=== PATIENT | male | born 1950 | race Caucasian/White ===

== ENCOUNTER 2017-01-27 22:14 | Emergency (ER) | payer MEDICARE, OTHER ==
[2017-01-27 23:07] VITALS: BP 109/73; PULSE 84; RESP 16; TEMP 97.5; O2SAT 97
--- NOTE | 2017-01-27 23:24 | C.PDOC ---
History Of Present Illness 66 y/o M c PMHx inguinal hernia x years p/w hernia pain x 6 months. He states the pain is intermittent. He denies fever, skin color change, vomiting, constipation. He states that he came to the hospital to get the hernia fixed finally. Time Seen by Provider: 01/27/17 23:16 Chief Complaint (Nursing): Abdominal Pain Past Medical History Vital Signs: Last Vital Signs Temp 97.5 F L 01/27/17 23:05 Pulse 84 01/27/17 23:05 Resp 16 01/27/17 23:05 BP 109/73 01/27/17 23:05 Pulse Ox 97 01/27/17 23:27 - Medical History PMH: Asthma Surgical History: Appendectomy (1979) Family History: States: Unknown Family Hx - Social History Hx Alcohol Use: Yes Hx Substance Use: No Review Of Systems Except As Marked, All Systems Reviewed And Found Negative. Constitutional: Negative for: Fever Cardiovascular: Negative for: Chest Pain Physical Exam - Physical Exam Additional Physical Exam Comments: Constitutional: No acute distress. Head: Normocephalic. Atraumatic. Eyes: PERRL. ENT: Moist mucous membranes. Neck: Supple. Cardiovascular: Regular rate. Chest: No tenderness. Respiratory: Clear to auscultation bilaterally. GI: Soft. Nontender. Nondistended. L inguinal hernia into scrotum without ecchymosis, erythema, tenderness. Back: No CVA tenderness. Musculoskeletal: No tenderness or swelling of extremities. Skin: No rash. Neurologic: Alert, no focal deficit. ED Course And Treatment O2 Sat by Pulse Oximetry: 97 Medical Decision Making Medical Decision Making: Patient instructed to follow up with General Surgery in office for elective hernia repair, no indication for further evaluation in ER currently for this chronic hernia that is not strangulated. Patient in no distress, normal vital signs, and no evidence of obstruction. Instructed to return for any of these reasons. Disposition - Disposition Referrals: Moira Mitchell MD [Staff Provider] - Disposition: HOME/ ROUTINE Disposition Time: 23:23 Condition: STABLE Prescriptions: Ibuprofen [Motrin] 1 tab PO Q6 #30 tab Instructions: Inguinal Hernia (ED) - Clinical Impression Clinical Impression: Inguinal hernia
== END 2017-01-27 23:28 | disposition home or self-care (01) ==
LOC: C.ER 22:14
DX: K46.9 Unspecified abdominal hernia without obstruction or gangrene (principal)

== ENCOUNTER 2017-02-05 17:51 | Inpatient (IN) | payer MEDICARE, MEDICAID ==
[2017-02-05 18:00] VITALS: O2SAT 96
[2017-02-05 19:07] LABS: BASO # 0.1 K/uL (0.0-0.2); BASO % 1.2 % (0.0-2.0); EOS % 0.3 % (0.0-4.0); HEMATOCRIT 44.8 % (35.0-51.0); LYMPH # 0.5 K/uL (1.0-4.3); LYMPH % 7.4 % (20.0-40.0); MEAN CELL VOLUME 83.1 fL (80.0-94.0); MEAN CORPUSCULAR HEMOGLOBIN 26.5 pg (27.0-31.0); MEAN CORPUSCULAR HGB CONC 31.9 g/dL (33.0-37.0); MEAN PLATELET VOLUME 9.2 fL (7.2-11.7); MONO # 0.7 K/uL (0.0-0.8); MONO % 10.3 % (0.0-10.0); PLATELET COUNT 153 K/uL (130-400); RED CELL DISTRIBUTION WIDTH 13.9 % (11.5-14.5); WHITE BLOOD COUNT 6.6 K/uL (4.8-10.8)
--- NOTE | 2017-02-05 19:11 | C.PDOC ---
History Of Present Illness <Nadia Lisa - Last Filed: 02/05/17 21:14> <Melchor Ramirez - Last Filed: 02/06/17 06:14> 66 year old patient presents to the ED complaining of bilateral leg pain, body aches and weakness for the past 15 days. Patient states the pain keeps him up at night. He also complains of fever, chills, and suicidal ideation. Patient reports he's thought about taking 10-15 pills of Xanax to kill himself a few times, but he hasn't done it since he doesn't have any Xanax. He is homeless and alone. Patient denies nausea, vomiting, shortness of breath, numbness, or chest pain. (Nadia Lisa) History Per: Patient History/Exam Limitations: no limitations Onset/Duration Of Symptoms: Days (15) Current Symptoms Are (Timing): Still Present Severity: Mild Pain Scale Rating Of: 3 Recent travel outside of the [place] States: No <Nadia Lisa - Last Filed: 02/05/17 21:14> <Melchor Ramirez - Last Filed: 02/06/17 06:14> Time Seen by Provider: 02/05/17 18:24 Chief Complaint (Nursing): Lower Extremity Problem/Injury Past Medical History Reviewed: Historical Data, Nursing Documentation, Vital Signs - Medical History PMH: Asthma Surgical History: Appendectomy (1979) Family History: States: Unknown Family Hx - Social History Hx Alcohol Use: Yes Hx Substance Use: No <Nadia Lisa - Last Filed: 02/05/17 21:14> Vital Signs: Last Vital Signs Temp 100.6 F H 02/06/17 00:20 Pulse 97 H 02/05/17 22:41 Resp 18 02/05/17 22:41 BP 127/83 02/05/17 22:41 Pulse Ox 96 02/05/17 22:41 Review Of Systems Except As Marked, All Systems Reviewed And Found Negative. Constitutional: Positive for: Fever, Chills, Weakness Cardiovascular: Negative for: Chest Pain Respiratory: Negative for: Shortness of Breath Gastrointestinal: Negative for: Nausea, Vomiting Neurological: Negative for: Numbness Psych: Positive for: Suicidal ideation <Nadia Lisa - Last Filed: 02/05/17 21:14> Physical Exam - Physical Exam Appears: Non-toxic, No Acute Distress Skin: Warm, Dry Head: Atraumatic, Normacephalic Eye(s): bilateral: Normal Inspection, EOMI Neck: Normal ROM, Supple Chest: Symmetrical Cardiovascular: Rhythm Regular Respiratory: No Accessory Muscle Use Back: Normal Inspection Extremity: Normal ROM Neurological/Psych: Oriented x3 <Nadia Lisa - Last Filed: 02/05/17 21:14> ED Course And Treatment - Laboratory Results Result Diagrams: 02/05/17 19:04 02/05/17 19:04 O2 Sat by Pulse Oximetry: 96 (RA) Pulse Ox Interpretation: Normal Progress Note: Plan: -Labs. -Crisis evaluation. -Reassess and disposition. Case discussed with Crisis counselor who will follow up with the patient at bedside. Dr. Arcos accepted the patient for psych admission for depressive disorder. <Nadia Lisa - Last Filed: 02/05/17 21:14> - Laboratory Results Result Diagrams: 02/05/17 19:04 02/05/17 19:04 <Melchor Ramirez - Last Filed: 02/06/17 06:14> Medical Decision Making <Nadia Lisa - Last Filed: 02/05/17 21:14> <Melchor Ramirez - Last Filed: 02/06/17 06:14> Medical Decision Makin: asked by ED RN to eval for pt with fever, had been given Tylenol already pt adm for psych, normal w/u with only Tox + cannabis Exam: clear lungs and OP clear, no infections/cellulitis noted. 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 - Scribe Statement The provider has reviewed the documentation as recorded by the Scribe <Nadia Lisa - Last Filed: 02/05/17 21:14> <Melchor Ramirez - Last Filed: 02/06/17 06:14> - Scribe Statement Milvia Vila All medical record entries made by the Scribe were at my direction and personally dictated by me. I have reviewed the chart and agree that the record accurately reflects my personal performance of the history, physical exam, medical decision making, and the department course for this patient. I have also personally directed, reviewed, and agree with the discharge instructions and disposition. (Nadia Lisa)
[2017-02-05 19:15] LABS: CHLORIDE 97 mmol/L (98-107); POTASSIUM 4.2 mmol/L (3.6-5.2); SODIUM 133 mmol/L (132-148)
[2017-02-05 19:17] LABS: GFR AFRICAN-AMERICAN > 60
[2017-02-05 19:18] LABS: ALB/GLOB RATIO 1.3 (1.0-2.1); ALKALINE PHOSPHATASE 86 U/L (38-126); ALT/SGPT 36 U/L (21-72); AST/SGOT 39 U/L (17-59); BILIRUBIN,TOTAL < 0.1 mg/dL (0.2-1.3); BLOOD UREA NITROGEN 23 mg/dL (9-20); CALCIUM 7.9 mg/dl (8.6-10.4); CARBON DIOXIDE 25 mmol/L (22-30); GLUCOSE,RANDOM 78 mg/dL (75-110); TOTAL PROTEIN 6.3 g/dL (6.3-8.3)
[2017-02-05 19:19] LABS: ALCOHOL SERUM < 10 mg/dl (0-10)
[2017-02-05 19:46] LABS: RBC URINE 1 /hpf (0-3); URINE BACTERIA RARE (<OCC); URINE BILIRUBIN NEGATIVE (NEGATIVE); URINE BLOOD NEGATIVE (NEGATIVE); URINE COLOR Yellow (YELLOW); URINE GLUCOSE (UA) NORMAL (Normal); URINE KETONE NEGATIVE (NEGATIVE); URINE LEUKOCYTE ESTERASE NEG Leu/uL (Negative); URINE PROTEIN NEGATIVE (NEGATIVE); URINE UROBILINOGEN NORMAL mg/dL (0.2-1.0); WBC URINE 3 /hpf (0-5)
[2017-02-05 20:06] LABS: NEUTROPHIL 70 % (50-75); TOTAL CELLS COUNTED 100
--- NOTE | 2017-02-06 14:13 | PCM.PSYCH ---
Initial Psychiatric Evaluation - Initial Psychiatric Evaluation Type of Admission: Voluntary Legal Status: Capacity Chief Complaint (in patient's own words): I was feeling depressed and suicidal History of Present Illness and Precipitating Events: Patient is a 66 y/o HM, who is currently homeless and unemployed with history of depressive disorder came to the hospital with depressed mood and suicidal ideation without any plan. Pt states that he has never admitted to any psychiatric unit and he has never seen any psychiatrist in the past. However, since past few weeks he is becoming increasingly depressed. yesterday he developed suicidal ideation without any plan so he came to the hospital to get help. Patient reports depressed mood, feelings of hopelessness and helplessness and poor sleep. He also reports leg pains and cramps and chest congestion. He reports irritability and agitation but denies any manic or psychotic symptoms. He reports smoking marihuana but denies any other substance abuse. Patient denies any withdrawal symptoms. PMH: Leg pains Current Medications: Active Medications Generic Name Dose Route Start Last Admin Trade Name Freq PRN Reason Stop Dose Admin Citalopram Hydrobromide 10 mg 02/06/17 10:00 02/06/17 11:12 Celexa PO Not Given DAILY ANGELINA Diphenhydramine HCl 50 mg 02/05/17 22:12 Benadryl PO Q6 PRN Extra Pyramidal Symptoms Gabapentin 100 mg 02/06/17 10:00 02/06/17 11:14 Neurontin PO 100 mg TID ANGELINA Administration Hydroxyzine HCl 25 mg 02/05/17 22:14 Atarax PO Q6 PRN Agitation Trazodone HCl 50 mg 02/06/17 22:00 Desyrel PO [facility] Past Psychiatric History - Past Psychiatric History Previous Treatment History: None Pertinent Medical Hx (Current Medical&Sleep Prob, Allergies): Allergies Allergy/AdvReac Type Severity Reaction Status Date / Time No Known Allergies Allergy Verified 01/27/17 23:08 Ibuprofen [Motrin] 1 tab PO Q6 #30 tab 01/27/17 Review of Systems - Review of Systems All systems: reviewed and no additional remarkable complaints except - Psychiatric Psychiatric: Anxiety, Irritability, Suicidal Ideation Mental Status Examination - Personal Presentation Personal Presentation: Looks stated age - Affect Affect: Constricted, Depressed - Motor Activity Motor Activity: Calm - Reliability in Providing Information Reliability in Providing Information: Good - Speech Speech: Organized - Mood Mood: Depressed, Anxious - Formal Thought Process Formal Thought Process: No Impairment - Obsessions/Compulsions Obsessions: No Compulsions: No - Cognitive Functions Orientation: Person, Place, Situation, Time Sensorium: Alert Attention/Concentration: Attentive Abstract Thinking: [place] Estimate of Intelligence: Below average Judgement: Imparied, as evidence by: Poor judgement, Imparied, as evidence by: Lack of insight into illness - Risk Risk: Suicidal, Diminished functioning - Strength & Assets Inventory Strength & Assets Inventory: Cooperative DSM 5 DX - DSM 5 DSM 5 Diagnosis: 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
[2017-02-06] MEDS ORDERED: Albuterol-Ipratrop 20 mcg/actuation (4 g) INH PRN (20:11)
[2017-02-07] MEDS ORDERED: Albuterol-Ipratrop 20 mcg/actuation (4 g) INH SCH (02:00)
--- NOTE | 2017-02-07 11:03 | PCM.PYCHPN ---
Psychiatric Progress Note - Psychiatric Progress Note Patient seen today, length of contact: 13 min Patient Chief Complaint: 'I feel depressed' Problems Identified/Issues Discussed: 66 yo M follow up states feeling depressed. Patient reports that he wants to leave the world, but does not want to hurt himself. Patient denies wanting to hurt other people, seeing and hearing things that are not there, feeling followed. Experiencing congestion, phlegm, night sweats, is sleeping well. Patient said that since starting his medication he has been having diarrhea. Denies nausea, vomiting, abdominal pain, body aches, shaking. Does not have a plan for when he is discharged. Mental Status Examination - Cognitive Function Orientation: Person, Place, Situation, Time Memory: Intact Attention: WNL Concentration: Poor Association: WNL Fund of Knowledge: Poor - Mood Mood: Depressed, Anxious - Affect Affect: Constricted, Depressed - Speech Speech: Soft - Formal Thought Process Formal Thought Process: No Impairment - Suicidal Ideation Suicidal Ideation: No - Homicidal Ideation Homicidal Ideation: No Goal/Treatment Plan - Goal/Treatment Plan Need for Continued Stay: Discharge may exacerbated symptoms, Severe functional impairment Progress Toward Problem(s) and Goals/Treatment Plan: 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
--- NOTE | 2017-02-08 14:04 | PCM.PYCHPN ---
Psychiatric Progress Note - Psychiatric Progress Note Patient seen today, length of contact: 13 min Patient Chief Complaint: I was feeling depressed and suicidal Problems Identified/Issues Discussed: Patient seen and evaluated, chart reviewed and discussed with the nurse. 66 yo M was discussed at the morning meeting and it was reported that patient may be malingering. Upon follow up patient reports chief complain of depression, nose bleeds, diarrhea. Patient says he does not want to hurt himself but wants to leave this world using pills because he has nothing, denies wanting to hurt others. Medication side effects reported include diarrhea, drowsiness. Positive for epistaxis, nausea, phlegm, poor appetitie with empty stomach. Patient sleeps well. Denies hearing and seeing things that are not there. Patient has no plans for after discharge, states he has no where to go, without family, is homeless, and requests a Greek speaking social service liaison to help him create a plan. General impression of patient is irritable state, worsening phlegm, and wants to meet with social service liaison to create a plan. Mental Status Examination - Cognitive Function Orientation: Person, Place, Situation, Time Memory: Intact Attention: WNL Concentration: Poor Association: WNL Fund of Knowledge: Poor - Mood Mood: Depressed, Anxious - Affect Affect: Constricted, Depressed - Speech Speech: Soft - Formal Thought Process Formal Thought Process: No Impairment - Suicidal Ideation Suicidal Ideation: No - Homicidal Ideation Homicidal Ideation: No Goal/Treatment Plan - Goal/Treatment Plan Need for Continued Stay: Discharge may exacerbated symptoms, Severe functional impairment Progress Toward Problem(s) and Goals/Treatment Plan: 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
--- NOTE | 2017-02-09 14:16 | PCM.PYCHPN ---
Psychiatric Progress Note - Psychiatric Progress Note Patient seen today, length of contact: 13 min Patient Chief Complaint: I'm feeling better Problems Identified/Issues Discussed: Patient seen and evaluated, chart reviewed and discussed with the nurse. Patient reports improvement in his mood and improvement in his physical symptoms. As per him his sleep and appetite are getting better. He denies any suicidal ideation or homicidal ideation. He is taking selective medications and denies any side effects. Medication Change: No Medical Record Reviewed: Yes Mental Status Examination - Cognitive Function Orientation: Person, Place, Situation, Time Memory: Intact Attention: WNL Concentration: WNL Association: WNL Fund of Knowledge: WNL - Mood Mood: Depressed, Anxious - Affect Affect: Constricted, Depressed - Speech Speech: Soft - Formal Thought Process Formal Thought Process: No Impairment - Suicidal Ideation Suicidal Ideation: No - Homicidal Ideation Homicidal Ideation: No Goal/Treatment Plan - Goal/Treatment Plan Need for Continued Stay: Discharge may exacerbated symptoms, Severe functional impairment Progress Toward Problem(s) and Goals/Treatment Plan: 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
[2017-02-10 08:02] VITALS: BP 100/68; PULSE 73; RESP 20; TEMP 98.2
--- NOTE | 2017-02-10 10:36 | PCM.PYCHDC ---
Mental Status Examination - Mental Status Examination Orientation: Person, Place, Situation, Time Memory: Intact Mood: Neutral Affect: Constricted Speech: Soft Attention: WNL Concentration: WNL Association: WNL Fund of Knowledge: WNL Formal Thought Process: No Impairment Description of patient's judgement and insight: good, fair Psychotic Thoughts and Behaviors: denies any AVH Suicidal Ideation: No Current Homicidal Ideation?: No Discharge Summary - Discharge Note Reason for Hospitalization: Patient is a 66 y/o HM, who is currently homeless and unemployed with history of depressive disorder came to the hospital with depressed mood and suicidal ideation without any plan. Pt states that he has never admitted to any psychiatric unit and he has never seen any psychiatrist in the past. However, since past few weeks he is becoming increasingly depressed. yesterday he developed suicidal ideation without any plan so he came to the hospital to get help. Patient reports depressed mood, feelings of hopelessness and helplessness and poor sleep. He also reports leg pains and cramps and chest congestion. He reports irritability and agitation but denies any manic or psychotic symptoms. He reports smoking marihuana but denies any other substance abuse. Patient denies any withdrawal symptoms. Consultations:: List each consultation separately and include: 1. Reason for request. 2. Findings. 3. Follow-up Summary of Hospital Course include:: 1. Description of specific treatment plan utilized for patients during their course of treatmen. 2. Summarize the time- course for resolution of acute symptoms and/or regressed behaviors. 3. Describe issues identified and worked on during hospitalization. 4. Describe medication utilized. 5. Describe medical problems identified and treated. 6. Reassessment of suicide risk Summary of Hospital Course: During the course of his stay, patient (pt) started progressively improving and he no longer remained irritable, depressed, and suicidal. His mood was improved and he started attending groups and meetings and started socializing. Patient denied any feelings of hopelessness, helplessness, and worthlessness, denied any problem with the sleep or appetite, denied suicidal ideation or homicidal ideation. Pt denied any auditory or visual hallucinations. Some changes were made in his current medications and patient was discharged on following medications. He tolerated these medications very well and denied any side effects. 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 Pt was educated and counseled about the risks of drinking and abusing drugs. Pt was educated and counseled to go to the ER or call 911 if pt develop suicidal ideation or homicidal ideation, worsening of symptoms or severe side effects of the meds. Prescriptions/Medication Reconciliation: traZODone [Desyrel] 50 mg PO HS #30 tab - Smoking Cessation Smoking Cessation Medication prescribed: No - Antipsychotic Medications Pt discharged on 2 or more routine antipsychotic medications: No
== END 2017-02-10 12:45 | disposition home or self-care (01) | DRG 885 ==
LOC: C.ER 17:51 → C.9E 21:14 → C.5E 21:31
PROVIDERS: ADMIT Psychiatry & Neurology Psychiatry; ATTEND Psychiatry & Neurology Psychiatry
PROC: GZ63ZZZ Other Counseling (ICD-10-PCS; principal; 2017-02-06)
PROC: GZHZZZZ Group Psychotherapy (ICD-10-PCS; 2017-02-06)
PROC: GZ58ZZZ Individual Psychotherapy, Cognitive-Behavioral (ICD-10-PCS; 2017-02-06)
PROC: GZ56ZZZ Individual Psychotherapy, Supportive (ICD-10-PCS; 2017-02-06)
DX: F32.2 Major depressive disorder, single episode, severe without psychotic features (principal); R45.851 Suicidal ideations; Z59.0 Homelessness; J45.909 Unspecified asthma, uncomplicated; F12.90 Cannabis use, unspecified, uncomplicated

== ENCOUNTER 2017-02-19 18:44 | Observation (INO) | payer MEDICARE, OTHER ==
--- NOTE | 2017-02-19 20:06 | C.PDOC ---
Time Seen by Provider: 02/19/17 20:05 Chief Complaint (Nursing): Male Genitourinary Past Medical History Reviewed: Historical Data, Nursing Documentation, Vital Signs Vital Signs: Last Vital Signs Temp 97.6 F 02/19/17 19:24 Pulse 93 H 02/19/17 19:24 Resp 20 02/19/17 19:24 BP 107/71 02/19/17 19:24 Pulse Ox 98 02/19/17 20:05 - Medical History PMH: Anxiety, Asthma, Depression Denies: Arthritis, Diabetes, Gastritis, Hepatitis, HIV, HTN, Chronic Kidney Disease, Seizures, Sexually Transmitted Disease Surgical History: Appendectomy (1979) - [employer] Procedures GROUP PSYCHOTHERAPY (02/05/17) INDIVIDUAL PSYCHOTHERAPY, COGNITIVE-BEHAVIORAL (02/05/17) INDIVIDUAL PSYCHOTHERAPY, SUPPORTIVE (02/05/17) OTHER COUNSELING (02/05/17) Family History: States: No Known Family Hx - Social History Hx Alcohol Use: No (stopped drinking 1 month ago) Hx Substance Use: No - Immunization History Hx Tetanus Toxoid Vaccination: No Hx Influenza Vaccination: No Hx Pneumococcal Vaccination: No ED Course And Treatment O2 Sat by Pulse Oximetry: 98 Disposition Counseled Patient/Family Regarding: Studies Performed, Diagnosis - Disposition Disposition Time: 20:05
[2017-02-19 20:26] LABS: RBC URINE 1 /hpf (0-3); URINE BILIRUBIN NEGATIVE (NEGATIVE); URINE BLOOD NEGATIVE (NEGATIVE); URINE COLOR Yellow (YELLOW); URINE GLUCOSE (UA) NORMAL (Normal); URINE KETONE NEGATIVE (NEGATIVE); URINE LEUKOCYTE ESTERASE NEG Leu/uL (Negative); URINE PROTEIN NEGATIVE (NEGATIVE); URINE UROBILINOGEN NORMAL mg/dL (0.2-1.0); WBC URINE < 1 /hpf (0-5)
[2017-02-19 20:46] LABS: ABG ALLEN TEST POS; DRAW SITE RRADIAL
[2017-02-19] MEDS: Albuterol-Ipratrop 3 mg / 0.5 (3 ml) UD IH SCH ×3 (21:15→21:50)
[2017-02-19 21:30] LABS: BASO % 0.5 % (0.0-2.0); EOS # 0.1 K/uL (0.0-0.7); EOS % 1.4 % (0.0-4.0); HEMATOCRIT 39.1 % (35.0-51.0); LYMPH # 1.2 K/uL (1.0-4.3); LYMPH % 13.7 % (20.0-40.0); MEAN CELL VOLUME 82.9 fL (80.0-94.0); MEAN CORPUSCULAR HEMOGLOBIN 26.2 pg (27.0-31.0); MEAN CORPUSCULAR HGB CONC 31.6 g/dL (33.0-37.0); MEAN PLATELET VOLUME 8.4 fL (7.2-11.7); MONO # 1.1 K/uL (0.0-0.8); MONO % 12.5 % (0.0-10.0); RED CELL DISTRIBUTION WIDTH 13.6 % (11.5-14.5); WHITE BLOOD COUNT 8.7 K/uL (4.8-10.8)
--- NOTE | 2017-02-19 21:30 | C.PDOC ---
History Of Present Illness 66 y/o male presents to ED with complaint of cough, generalized body pain. Denies fever or chills. Patient also reports generalized body aches. Notes cough is productive of whitish sputum. Time Seen by Provider: 02/19/17 20:05 Chief Complaint (Nursing): Male Genitourinary History Per: Patient History/Exam Limitations: no limitations Onset/Duration Of Symptoms: Days Current Symptoms Are (Timing): Still Present Pain Scale Rating Of: 0 Recent travel outside of the [place]: No Past Medical History Reviewed: Historical Data, Nursing Documentation, Vital Signs Vital Signs: Last Vital Signs Temp 97.8 F 02/20/17 00:55 Pulse 92 H 02/20/17 00:55 Resp 16 02/20/17 00:55 BP 98/59 L 02/20/17 00:55 Pulse Ox 98 02/20/17 00:55 - Medical History PMH: Anxiety, Asthma, Depression Surgical History: Appendectomy (1979) - [facility] Procedures GROUP PSYCHOTHERAPY (02/05/17) INDIVIDUAL PSYCHOTHERAPY, COGNITIVE-BEHAVIORAL (02/05/17) INDIVIDUAL PSYCHOTHERAPY, SUPPORTIVE (02/05/17) OTHER COUNSELING (02/05/17) Family History: States: No Known Family Hx, Unknown Family Hx - Social History Hx Alcohol Use: No (stopped drinking 1 month ago) Hx Substance Use: No - Immunization History Hx Tetanus Toxoid Vaccination: No Hx Influenza Vaccination: No Hx Pneumococcal Vaccination: No Review Of Systems Constitutional: Positive for: Malaise. Negative for: Fever, Chills ENT: Negative for: Throat Pain Cardiovascular: Negative for: Chest Pain, Palpitations Respiratory: Positive for: Cough, Sputum. Negative for: Shortness of Breath, Wheezing Gastrointestinal: Negative for: Nausea, Vomiting, Abdominal Pain, Diarrhea Skin: Negative for: Rash Neurological: Negative for: Headache, Dizziness Physical Exam - Physical Exam Appears: Non-toxic, No Acute Distress Skin: Warm, Dry Head: Atraumatic, Normacephalic Oral Mucosa: Moist Chest: Symmetrical Cardiovascular: Rhythm Regular Respiratory: No Accessory Muscle Use, No Rales, Rhonchi (scattered, at bases), No Wheezing Gastrointestinal/Abdominal: Soft, No Tenderness Back: Normal Inspection Extremity: Normal ROM, Capillary Refill (< 2 sec. ) Neurological/Psych: Oriented x3, Normal Speech, Normal Cognition ED Course And Treatment - Laboratory Results Result Diagrams: 02/19/17 21:24 02/19/17 21:24 O2 Sat by Pulse Oximetry: 98 (RA) Pulse Ox Interpretation: Normal - Radiology CXR: Interpreted by Me, Viewed By Me CXR Interpretation: Yes: COPD. No: Infiltrates, Fracture, Pnemothorax Reevaluation Time: 05:22 Reassessment Condition: Improved ED OBSERVATION Discharge: Yes Date of observation admission: 02/19/17 Time of observation admission: 22:18 - Observation admission statement Patient is being placed in observation because:: cough, homeless - Goals of Observation Goals of observation are:: social service - Progress Note Progress Note: 02/19/17 22:18 vitals stable, no complaints 02/20/17 00:22 no complaints 02/20/17 02:23 vitals stable 02/20/17 05:23 no complaints, vital stable Disposition Counseled Patient/Family Regarding: Studies Performed, Diagnosis, Need For Followup - Disposition Disposition: HOME/ ROUTINE Disposition Time: 20:05 Condition: FAIR - Clinical Impression Clinical Impression: URI (upper respiratory infection) - Scribe Statement The provider has reviewed the documentation as recorded by the Magali Ly Provider Scribe Attestation: All medical record entries made by the Jeromeibkris were at my direction and personally dictated by me. I have reviewed the chart and agree that the record accurately reflects my personal performance of the history, physical exam, medical decision making, and the department course for this patient. I have also personally directed, reviewed, and agree with the discharge instructions and disposition.
[2017-02-19 21:42] LABS: CHLORIDE 98 mmol/L (98-107); POTASSIUM 4.2 mmol/L (3.6-5.2); SODIUM 136 mmol/L (132-148)
[2017-02-19 21:44] LABS: BILIRUBIN,TOTAL < 0.1 mg/dL (0.2-1.3); GFR AFRICAN-AMERICAN > 60
[2017-02-19 21:45] LABS: ALKALINE PHOSPHATASE 117 U/L (38-126); ALT/SGPT 38 U/L (21-72); AST/SGOT 19 U/L (17-59); BLOOD UREA NITROGEN 22 mg/dL (9-20); CARBON DIOXIDE 32 mmol/L (22-30); GLUCOSE,RANDOM 88 mg/dL (75-110); TOTAL PROTEIN 6.4 g/dL (6.3-8.3)
[2017-02-19 21:46] LABS: CALCIUM 8.7 mg/dl (8.6-10.4)
[2017-02-19] MEDS ORDERED: Albuterol-Ipratrop 3 mg / 0.5 (3 ml) UD ONE (21:56)
[2017-02-19] MEDS ORDERED: Piperacillin/Tazobact 3.375 gm 100 ML IVPB STA (22:16)
[2017-02-19] MEDS ORDERED: Piperacillin/Tazobact 3.375 gm 100 ML IVPB ONE (22:28)
[2017-02-20 06:03] VITALS: BP 106/71; PULSE 86; RESP 20; TEMP 98.1; O2SAT 99
--- NOTE | 2017-02-20 08:24 | RAD ---
HISTORY: SOB COMPARISON: No prior. TECHNIQUE: Chest PA and lateral FINDINGS: LUNGS: Bibasilar interstitial changes. PLEURA: No significant pleural effusion identified. No pneumothorax apparent. CARDIOVASCULAR: Normal. OSSEOUS STRUCTURES: No significant abnormalities. VISUALIZED UPPER ABDOMEN: Normal. OTHER FINDINGS: None. IMPRESSION: Bibasilar interstitial changes which are nonspecific.. Recommend followup.
== END 2017-02-20 05:24 | disposition home or self-care (01) ==
LOC: C.ER 18:44 → C.9OBSV 22:17
PROVIDERS: ADMIT Emergency Medicine; ATTEND Emergency Medicine
DX: J06.9 Acute upper respiratory infection, unspecified (principal); J45.909 Unspecified asthma, uncomplicated; F41.9 Anxiety disorder, unspecified
CPT/HCPCS: 71020; 80053; 81001; 82803; 85025; 85610; 85730; 87040; 87086; 96365; G0378; J2543

== ENCOUNTER 2017-03-01 12:21 | Emergency (ER) | payer MEDICARE, OTHER ==
[2017-03-01 12:35] VITALS: TEMP 97.7; O2SAT 97
--- NOTE | 2017-03-01 13:17 | C.PDOC ---
History Of Present Illness 66 yr old male presents to the ER with complaints of persistent asthma symptoms for the past several days. Patient reports limited relief with a inhaler. Patient was seen on 02/18 and was diagnosed with URI symptoms, patient states "I couldn't read the instructions because they're in [place]an". Patient also reports of new onset of bilateral ankle swelling for the past 1 week. Patient denies any trauma or pain to the ankles. Also denies chest pain, nausea, vomiting, abdominal pain or back pain. VIA TRANS PERSIST ASTHMA SX X SEV DAYS. LIMITED RELIEF W MDI. NO FEVER, DESHPANDE, CP. SEEN 02/18 DX URI PS "I COULDNT READ THE INSTRUCTIONS BECAUSE THEY'RE IN [facility]" ALSO W NEW ONSET B/L ANKLE SWELL X 1 WEEK. NO PAIN, TRAUMA. EXAM OCC EXP WHEEZE. NO RETRACTIONS, SPEAKING FUL LSENTENCES B/L ANKLE EDEMA 1+ ATRAUM SKIN INTACT MDM ADVISSED NEED FOR PMD EVAL FOR EDEMA. NO S/S ACUTE CHF. CXR 02/19 NO CHF. Time Seen by Provider: 03/01/17 12:39 Chief Complaint (Nursing): Lower Extremity Problem/Injury History Per: Patient, German Teacher History/Exam Limitations: no limitations, language barrier (Sami ) Onset/Duration Of Symptoms: Days (Several days ) Past Medical History Reviewed: Historical Data, Nursing Documentation, Vital Signs Vital Signs: Last Vital Signs Temp 97.7 F 03/01/17 12:27 Pulse 102 H 03/01/17 12:27 Resp 18 03/01/17 12:27 BP 113/73 03/01/17 12:27 Pulse Ox 97 03/01/17 13:41 - Medical History PMH: Anxiety, Asthma, Depression Surgical History: Appendectomy (1979) - [facility] Procedures GROUP PSYCHOTHERAPY (02/05/17) INDIVIDUAL PSYCHOTHERAPY, COGNITIVE-BEHAVIORAL (02/05/17) INDIVIDUAL PSYCHOTHERAPY, SUPPORTIVE (02/05/17) OTHER COUNSELING (02/05/17) Family History: States: No Known Family Hx - Social History Hx Alcohol Use: No (stopped drinking 1 month ago) Hx Substance Use: No - Immunization History Hx Tetanus Toxoid Vaccination: No Hx Influenza Vaccination: No Hx Pneumococcal Vaccination: No Review Of Systems Except As Marked, All Systems Reviewed And Found Negative. Cardiovascular: Negative for: Chest Pain Respiratory: Positive for: Other ((+) Asthma symptoms. ) Gastrointestinal: Negative for: Nausea, Vomiting, Abdominal Pain Musculoskeletal: Negative for: Back Pain Physical Exam - Physical Exam Appears: Well, Non-toxic, No Acute Distress Skin: Warm, Dry Head: Atraumatic, Normacephalic Oral Mucosa: Moist Throat: Normal, No Erythema, No Exudate, No Drooling Chest: Symmetrical, No Tenderness Cardiovascular: Rhythm Regular, No Murmur Respiratory: No Rales, Wheezing (Occasional expirtory wheezing. ), Other (No retractions. Speaking in full sentences. ) Gastrointestinal/Abdominal: Normal Exam, Soft, No Tenderness, No Guarding, No Rebound Extremity: Normal ROM, No Calf Tenderness, Other ((+) Bilateral ankle edema 1+. Skin intact. ) Neurological/Psych: Oriented x3, Normal Speech, Normal Motor ED Course And Treatment O2 Sat by Pulse Oximetry: 97 Progress - Data Reviewed Data Reviewed: Old records Medical Decision Making Medical Decision Making: PLAN: * Albuterol IH * Prednisone PO NOTE: Advised patient for an evaluation by PMD for edema. No S/S acute CHF. CXR 02/19 no CHF. Disposition Counseled Patient/Family Regarding: Diagnosis, Need For Followup, Rx Given - Disposition Referrals: [facility] [Outside] [facility] [Outside] [facility] [Outside] Disposition: HOME/ ROUTINE Disposition Time: 14:06 Condition: IMPROVED Prescriptions: predniSONE [Prednisone] 60 mg PO DAILY #12 tab Instructions: Asthma (ED), Leg Edema (ED) Print Language: KINYARWANDA - Clinical Impression Clinical Impression: Asthma exacerbation, Ankle edema - Scribe Statement The provider has reviewed the documentation as recorded by the Magali Bragg Provider Attestation: All medical record entries made by the Magali were at my direction and personally dictated by me. I have reviewed the chart and agree that the record accurately reflects my personal performance of the history, physical exam, medical decision making, and the department course for this patient. I have also personally directed, reviewed, and agree with the discharge instructions and disposition.
[2017-03-01] MEDS ORDERED: Albuterol-Ipratrop 3 mg / 0.5 (3 ml) UD IH STA (13:18)
[2017-03-01] MEDS ORDERED: Albuterol-Ipratrop 3 mg / 0.5 (3 ml) UD ONE (13:25)
[2017-03-01 14:20] VITALS: BP 109/75; PULSE 89; RESP 16
== END 2017-03-01 14:19 | disposition home or self-care (01) ==
LOC: C.ER 12:21
DX: J45.901 Unspecified asthma with (acute) exacerbation (principal); R60.0 Localized edema

== ENCOUNTER 2017-10-02 12:25 | Emergency (ER) | payer MEDICARE, OTHER ==
[2017-10-02 12:37] VITALS: BP 130/87; PULSE 62; RESP 18; TEMP 97.5; O2SAT 100
--- NOTE | 2017-10-02 13:57 | C.PDOC ---
History Of Present Illness 67 year old male with a PMHx of mental illness presents to the ED with complaints of cramping abdominal discomfort since this morning. Patient states he had tuna for breakfast and it often given him cramping abdominal pain. Patient was evaluated for similar complaints on 09/23/2017. Patient notes pain resolved prior to arrival. Patient denies nausea, vomiting, diarrhea, or other complaints at this time. Time Seen by Provider: 10/02/17 13:44 Chief Complaint (Nursing): Abdominal Pain History Per: Patient History/Exam Limitations: no limitations Onset/Duration Of Symptoms: Hrs Current Symptoms Are (Timing): Better Radiation Of Pain To:: None Quality Of Discomfort: Cramping Associated Symptoms: denies: Fever, Chills, Nausea, Vomiting, Diarrhea Exacerbating Factors: None Alleviating Factors: None Recent travel outside of the [place]: No Past Medical History Vital Signs: Last Vital Signs Temp 97.5 F L 10/02/17 12:34 Pulse 62 10/02/17 12:34 Resp 18 10/02/17 12:34 BP 130/87 10/02/17 12:34 Pulse Ox 100 10/02/17 13:57 - Medical History PMH: Anxiety, Asthma, Depression, Pneumonia Surgical History: Appendectomy (1979), Hernia Repair (inguinal hernia) - [facility] Procedures GROUP PSYCHOTHERAPY (02/05/17) INDIVIDUAL PSYCHOTHERAPY, BEHAVIORAL (06/10/17) INDIVIDUAL PSYCHOTHERAPY, COGNITIVE-BEHAVIORAL (02/05/17) INDIVIDUAL PSYCHOTHERAPY, SUPPORTIVE (02/05/17) OTHER COUNSELING (02/05/17) Family History: States: Unknown Family Hx - Social History Hx Alcohol Use: No Hx Substance Use: Yes (cannabis) - Immunization History Hx Tetanus Toxoid Vaccination: No Hx Influenza Vaccination: No Hx Pneumococcal Vaccination: No Review Of Systems Constitutional: Negative for: Fever, Chills Respiratory: Negative for: Cough, Shortness of Breath Gastrointestinal: Positive for: Abdominal Pain. Negative for: Nausea, Vomiting , Diarrhea Physical Exam - Physical Exam Appears: Non-toxic, No Acute Distress, Other (thin male ) Skin: Warm, Dry, No Rash Head: Atraumatic, Normacephalic, No Tenderness Eye(s): bilateral: Normal Inspection, PERRL, EOMI Oral Mucosa: Moist Neck: Supple Chest: Symmetrical, No Deformity Cardiovascular: Rhythm Regular, No Murmur Respiratory: No Rales, No Rhonchi, No Wheezing, Other (clear to auscultation bilaterally ) Gastrointestinal/Abdominal: Soft, No Tenderness, No Distention, No Guarding, No Rebound, Other (thin abdomen ) Extremity: Normal ROM, No Pedal Edema, No Calf Tenderness, No Swelling, Other ( large left inguinal hernia that extends into scrotum, patient states "has been there for years") Neurological/Psych: Oriented x3 ED Course And Treatment O2 Sat by Pulse Oximetry: 100 (RA) Pulse Ox Interpretation: Normal Medical Decision Making Medical Decision Making: crampy abd discomfort, h/o same. Large L inguinal hernia, non-tender for "years" pt educated that although homeless and living in [facility] he may have elective surgery performed Dr. Christian Coping Machine Operator Surgery- referred as non-emergent. Disposition Doctor Will See Patient In The: Office Counseled Patient/Family Regarding: Studies Performed, Diagnosis - Disposition Referrals: [facility] [Outside[facility] [Outside] Soto Ge MD [Staff Provider] - Disposition: HOME/ ROUTINE Disposition Time: 13:57 Condition: GOOD Additional Instructions: Llama o' presenta en la oficina de Dr. Christian para hacer Lorie para evaluacion ' y reparacio'n del hernia inguinal del lado drea. Instructions: Inguinal Hernia (ED) Forms: [facility] (Divehi) Print Language: UPPER SORBIAN - Clinical Impression Clinical Impression: Abdominal colic, Inguinal hernia of left side without obstruction or gangrene - Scribe Statement The provider has reviewed the documentation as recorded by the Scribkris Russell All medical record entries made by the Scribe were at my direction and personally dictated by me. I have reviewed the chart and agree that the record accurately reflects my personal performance of the history, physical exam, medical decision making, and the department course for this patient. I have also personally directed, reviewed, and agree with the discharge instructions and disposition.
--- NOTE | 2017-10-03 18:25 | CARD ---
APPROVED REPORT EKG Measurement Heart [id number] <Conclusion> Normal sinus rhythm Normal ECG
== END 2017-10-02 14:40 | disposition home or self-care (01) ==
LOC: C.ER 12:25
DX: R10.9 Unspecified abdominal pain (principal); K40.90 Unilateral inguinal hernia, without obstruction or gangrene, not specified as recurrent

== ENCOUNTER 2018-02-09 06:13 | Emergency (ER) | payer MEDICAID, MEDICARE, OTHER ==
[2018-02-09 06:35] VITALS: BP 137/79; PULSE 72; RESP 18; TEMP 97.4; O2SAT 100
[2018-02-09] MEDS ORDERED: Albuterol 0.083% Inhal Sol (2.5 mg/3 mL) UD IH STA (07:17)
--- NOTE | 2018-02-09 07:26 | C.PDOC ---
History Of Present Illness 67 yo male with PMD asthma and appendectomy c/o abdominal pain. Pt notes he had a ham and cheese sandwich this morning and felt some abdominal discomfort. Notes "its 50% better now. I think I need some jared luis a and food to make it go away." Also requesting refill on his Combivent. Denies difficulty breathing or persistent cough. Denies vomiting, diarrhea, dysuria, urinary frequency, chest pain, sob or fever. Normal BM today. Pt is homeless. Time Seen by Provider: 02/09/18 07:04 Chief Complaint (Nursing): Abdominal Pain History Per: Patient History/Exam Limitations: no limitations Onset/Duration Of Symptoms: Hrs Current Symptoms Are (Timing): Better Location Of Pain/Discomfort: Periumbilical Past Medical History Vital Signs: Last Vital Signs Temp 97.4 F L 02/09/18 06:28 Pulse 72 02/09/18 06:28 Resp 18 02/09/18 06:28 BP 137/79 02/09/18 06:28 Pulse Ox 100 02/09/18 08:27 - Medical History PMH: Anxiety, Asthma, Depression, Pneumonia Denies: Alzheimer's Disease, Anemia, Arthritis, Atrial Fibrillation, Bipolar Disorder, Bronchitis, Cardia Arrhythmia, CHF, COPD, Crohn's Disease, Dementia, Diabetes, Diverticulitis, Emphysema, Fractures, Gastritis, Gall Bladder Disease , Hepatitis, HIV, HTN, Hypercholesterolemia, Hyperthyroidism, Hypothyroidism, Kidney Stones, Migraine, Mitral Valve Prolapse, Multiple Sclerosis, Osteoporosis , Pancreatitis, Parkinson's Disease, Peripheral Edema, Personality Disorder, Pulmonary Embolism, Chronic Kidney Disease, Rheumatoid Arthritis, Schizophrenia , Seizures, Sickle Cell Disease, Sexually Transmitted Disease, Sleep Apnea, TIA Surgical History: Appendectomy (1979), Hernia Repair (inguinal hernia) Denies: CABG, Carotid Endarterectomy, Cholecystectomy, Coronary Stent, Pacemaker, Tonsillectomy - [facility] Procedures GROUP PSYCHOTHERAPY (02/05/17) INDIVIDUAL PSYCHOTHERAPY, BEHAVIORAL (06/10/17) INDIVIDUAL PSYCHOTHERAPY, COGNITIVE-BEHAVIORAL (02/05/17) INDIVIDUAL PSYCHOTHERAPY, SUPPORTIVE (02/05/17) OTHER COUNSELING (02/05/17) Family History: States: Unknown Family Hx - Social History Hx Alcohol Use: Yes Hx Substance Use: Yes (cannabis) - Immunization History Hx Tetanus Toxoid Vaccination: No Hx Influenza Vaccination: No Hx Pneumococcal Vaccination: No Review Of Systems Except As Marked, All Systems Reviewed And Found Negative. Gastrointestinal: Positive for: Abdominal Pain Physical Exam - Physical Exam Appears: Well, Non-toxic, No Acute Distress Skin: Normal Color, Warm, Dry Head: Atraumatic, Normacephalic Eye(s): bilateral: Normal Inspection, PERRL, EOMI Nose: Normal Neck: Normal, Normal ROM, Supple Chest: Symmetrical Cardiovascular: Rhythm Regular Respiratory: Decreased Breath Sounds Gastrointestinal/Abdominal: Normal Exam, Soft, No Tenderness, Other (healed surgical scar in RLQ) Back: Normal Inspection Extremity: Normal ROM Neurological/Psych: Oriented x3, Normal Speech ED Course And Treatment O2 Sat by Pulse Oximetry: 100 Progress Note: Pt was offered medication and work up for his abdominal pain. Pt requests food and a nebulizer. On re-evaluation, pt denies abdominal pain. Tolerated sandwish and jared luis a. Afebrile. Abd soft non tender. Lungs CTA. Instructed to follow up with PMD in1 -2 days or return to ER if symptoms persist or worsen. Disposition - Disposition Referrals: Non [facility] Provider, [Primary Care Provider] - Disposition: HOME/ ROUTINE Disposition Time: 07:34 Condition: STABLE Additional Instructions: Follow up with your PMD in 1-2 days. Return to ER if symptoms persist or worsen. Prescriptions: Albuterol/Ipratropium [Combivent Respimat] 1 puff IH Q6 PRN #1 inhaler PRN Reason: Shortness Of Breath Instructions: Asthma in Adults Forms: [facility] (Ukrainian) - Clinical Impression Clinical Impression: Abdominal pain, Asthma
[2018-02-09] MEDS ORDERED: Albuterol 0.083% Inhal Sol (2.5 mg/3 mL) UD ONE (08:22)
== END 2018-02-09 09:16 | disposition home or self-care (01) ==
LOC: SUPCPDRO 06:13 → C.ER 06:13
DX: R10.9 Unspecified abdominal pain (principal); J45.909 Unspecified asthma, uncomplicated; Z59.0 Homelessness